=== PATIENT | female | born 1935 | race Two or more races ===

== ENCOUNTER → 2017-03-03 | Outpatient (CLI) | payer BC | END | disposition home or self-care (01) | LOC: MAMMO 08:49 | DX: Z12.31 Encounter for screening mammogram for malignant neoplasm of breast (principal) | CPT/HCPCS: 77067 ==

== ENCOUNTER → 2018-03-04 | Outpatient (CLI) | payer BC ==
[~2018-03-04] MED LIST: CITA20TA6 PO; FERR325T58 PO; LEVO75TA5 PO
--- NOTE | 2018-03-06 14:43 | RAD ---
DATE: 03/04/2018 EXAM: MAMMO ADAM SCREENING BILATERAL HISTORY: Routine screening COMPARISON: 03/03/2017 This study was interpreted with the benefit of Computerized Aided Detection (CAD). Breast Density: SCATTERED The breast parenchyma shows scattered fibroglandular densities. Breast parenchyma level B. FINDINGS: 2-D and 3-D tomosynthesis imaging was performed in CC and MLO projections. A small benign-appearing lymph node type density is again noted laterally in the left breast. It has been present on multiple previous studies. Its size has fluctuated slightly. It is currently of a similar size when compared to the 02/25/2014 exam. No new breast densities are seen. No suspicious microcalcifications are evident. IMPRESSION: There is no mammographic evidence of malignancy in either breast. BI-RADS CATEGORY: 2 BENIGN FINDING(S) RECOMMENDED FOLLOW-UP: 12M 12 MONTH FOLLOW-UP PQRS compliance statement: Patient information was entered into a reminder system with a target due date for the next mammogram. Mammography is a sensitive method for finding small breast cancers, but it does not detect them all and is not a substitute for careful clinical examination. A negative mammogram does not negate a clinically suspicious finding and should not result in delay in biopsying a clinically suspicious abnormality. "Our facility is accredited by the [employer] Mammography [employer]."
== END | disposition home or self-care (01) ==
LOC: MAMMO 08:51
PROVIDERS: ATTEND Family Medicine
DX: Z12.31 Encounter for screening mammogram for malignant neoplasm of breast (principal)
CPT/HCPCS: 77063; 77067

== ENCOUNTER 2018-09-03 10:49 | Emergency (ER) | payer BC ==
[~2018-09-03] VITALS: Ht 160 cm; Wt 53.5 kg
[2018-09-03 11:03] VITALS: BP 164/80
[2018-09-03] MEDS ORDERED: METH4TAB2 PO (11:41)
[2018-09-03] MEDS ORDERED: TRIA15CR TP (11:41)
--- NOTE | 2018-09-03 11:43 | PHYS DOC ---
Past Medical History Past Medical History: Anemia, Constipation, Hypothyroid Past Surgical History: Appendectomy, Hysterectomy, Tonsillectomy, Other Additional Past Surgical Histo: D&C,BILAT CATARACTS Alcohol Use: None Drug Use: None Adult General Chief Complaint Chief Complaint: SKIN RASH/ABSCESS [facility] HPI Patient is a 83 year old female who presents with red papules that are itchy x 5 weeks. Patient states they are getting worse. Patient states she has oak trees in her yard and is wondering if she is having oak mite bites. Rates her discomfort at a 9/10. Patient states she can not sleep at night due to the itching. Review of Systems Review of Systems Constitutional: Denies fever or chills [] Eyes: Denies change in visual acuity, redness, or eye pain [] HENT: Denies nasal congestion or sore throat [] Respiratory: Denies cough or shortness of breath [] Cardiovascular: No additional information not addressed in HPI [] GI: Denies abdominal pain, nausea, vomiting, bloody stools or diarrhea [] : Denies dysuria or hematuria [] Musculoskeletal: Denies back pain or joint pain [] Integument: rash or skin lesions [] Neurologic: Denies headache, focal weakness or sensory changes [] Endocrine: Denies polyuria or polydipsia [] All other systems were reviewed and found to be within normal limits, except as documented in this note. Allergies Allergies Allergies Coded Allergies Type Severity Reaction Last Updated Verified Penicillins Allergy Intermediate 04/05/16 Yes Physical Exam Physical Exam Constitutional: Well developed, well nourished, no acute distress, non-toxic apryl earance. [] HENT: Normocephalic, atraumatic, bilateral external ears normal, oropharynx moist, no oral exudates, nose normal. [] Eyes: PERRLA, EOMI, conjunctiva normal, no discharge. [] Neck: Normal range of motion, no tenderness, supple, no stridor. [] Cardiovascular:Heart rate regular rhythm, no murmur [] Lungs & Thorax: Bilateral breath sounds clear to auscultation [] Abdomen: Bowel sounds normal, soft, no tenderness, no masses, no pulsatile masses. [] Skin: Warm, dry, no erythema, small papule rash to bilateral legs, groins, under breasts. [] Back: No tenderness, no CVA tenderness. [] Extremities: No tenderness, no cyanosis, no clubbing, ROM intact, no edema. [] Neurologic: Alert and oriented X 3, normal motor function, normal sensory function, no focal deficits noted. [] Psychologic: Affect normal, judgement normal, mood normal. [] Current Patient Data Vital Signs Vital Signs Date Time Temp Pulse Resp B/P (MAP) Pulse Ox O2 Delivery O2 Flow Rate FiO2 09/03/18 11:03 97.6 83 20 164/80 (108) 99 Room Air 97.6 EKG EKG [] Radiology/Procedures Radiology/Procedures [] Course & Med Decision Making Course & Med Decision Making Patient is a 83 year old female who presents with red papules that are itchy x 5 weeks. Patient states they are getting worse. Patient states she has oak trees in her yard and is wondering if she is having oak mite bites. Rates her discomfort at a 9/10. Patient states she can not sleep at night due to the itching. Alert and oriented. Patient has eraser sized red papules to bilateral inner thighs, groins, left arm, under breast. These appear to be insect bites. No drainage or signs of infection. No papules in webbing of fingers or toes. Vital sign are wnl. Patient states they are very itchy and she can not sleep. Alert and Oriented. Ambulatory. Speaks in full clear sentences. Patient to call her doctor tomorrow. I will put the patient on a Medrol dose pack and triamcinolone cream. Patient has no liver, kidney, or heart history. Dragon Disclaimer Dragon Disclaimer This electronic medical record was generated, in whole or in part, using a voice recognition dictation system. Departure Departure Impression: Primary Impression: Rash Disposition: HOME, SELF-CARE Condition: STABLE Referrals: LEO JONES MD (PCP) Patient Instructions: Rash Additional Instructions: Call your doctor tomorrow to be seen for follow up. Use medications as prescribed. Scripts Methylprednisolone (MEDROL) 4 Mg Tab.ds.pk 1 PKG PO UD, #1 PKG Prov: MYRTLE LLANES ACCOUNTS RECEIVABLE MANAGER 09/03/18 Triamcinolone Acetonide (TRIAMCINOLONE ACETONIDE 0.5% CREAM) 15 Gm Cream..g. 1 APRYL TP BID for 7 Days, #30 GM Prov: MYRTLE LLANES APRN 09/03/18 MYRTLE LLANES APRN Sep 03, 2018 11:42
== END 2018-09-03 11:48 | disposition home or self-care (01) ==
LOC: ER 10:49
DX: R21 Rash and other nonspecific skin eruption (principal); L29.9 Pruritus, unspecified; E03.9 Hypothyroidism, unspecified; Z86.2 Personal history of diseases of the blood and blood-forming organs and certain disorders involving the immune mechanism; Z88.0 Allergy status to penicillin
CPT/HCPCS: 99284

== ENCOUNTER → 2019-03-06 | Outpatient (CLI) | payer BC ==
[~2019-03-06] MED LIST changes: +METH4TAB2 PO; +TRIA15CR TP
--- NOTE | 2019-03-07 17:36 | RAD ---
DATE: 03/06/2019 EXAM: MAMMO ADAM SCREENING BILATERAL HISTORY: Routine screening COMPARISON: 03/04/2018, 03/03/2017, 02/27/2016, 02/27/2015, 02/25/2014 This study was interpreted with the benefit of Computerized Aided Detection (CAD). Breast Density: HETERO The breast parenchyma is heterogenously dense, which could reduce sensitivity of mammography. Breast parenchyma level C. FINDINGS: Parenchymal distribution is stable. No mass or distortion in the interval. Small left upper outer breast mass is stable. IMPRESSION: Stable BI-RADS CATEGORY: 1 NEGATIVE RECOMMENDED FOLLOW-UP: 12M 12 MONTH FOLLOW-UP PQRS compliance statement: Patient information was entered into a reminder system with a target due date for the next mammogram. Mammography is a sensitive method for finding small breast cancers, but it does not detect them all and is not a substitute for careful clinical examination. A negative mammogram does not negate a clinically suspicious finding and should not result in delay in biopsying a clinically suspicious abnormality. "Our facility is accredited by the [employer] Mammography [employer]."
== END | disposition home or self-care (01) ==
LOC: MAMMO 14:26
PROVIDERS: ATTEND Family Medicine
DX: Z12.31 Encounter for screening mammogram for malignant neoplasm of breast (principal); N63.21 Unspecified lump in the left breast, upper outer quadrant
CPT/HCPCS: 77063; 77067

== ENCOUNTER → 2020-03-12 | Outpatient (CLI) | payer BC, MEDICARE ==
--- NOTE | 2020-03-13 09:21 | RAD ---
DATE: 03/12/2020 9:07 AM EXAM: DIGITAL SCREEN BILAT W/CAD HISTORY: Screening COMPARISON: 03/06/2019, 03/04/2018 and 03/03/2017. Bilateral full field craniocaudal and mediolateral oblique images were obtained using digital technique. This study was interpreted with the benefit of Computerized Aided Detection (CAD). FINDINGS: Breast Density: SCATTERED The breast parenchyma shows scattered fibroglandular densities. Breast parenchyma level B No suspicious masses, microcalcifications or architectural distortion is present to suggest malignancy in either breast. The visualized axillae are unremarkable. IMPRESSION: No mammographic evidence of malignancy. BI-RADS CATEGORY: 1 NEGATIVE RECOMMENDED FOLLOW-UP: 12M 12 MONTH FOLLOW-UP Annual screening mammography is recommended, unless clinically indicated sooner based on symptoms or change in physical exam. PQRS compliance statement: Patient information was entered into a reminder system with a target due date for the next mammogram. Mammography is a sensitive method for finding small breast cancers, but it does not detect them all and is not a substitute for careful clinical examination. A negative mammogram does not negate a clinically suspicious finding and should not result in delay in biopsying a clinically suspicious abnormality. "Our facility is accredited by the [employer] Mammography [employer]."
== END ==
LOC: MAMMO 10:03
PROVIDERS: ATTEND Family Medicine
DX: Z12.31 Encounter for screening mammogram for malignant neoplasm of breast (principal)
CPT/HCPCS: 77067

== ENCOUNTER → 2021-03-18 | Outpatient (CLI) | payer BC ==
--- NOTE | 2021-03-18 16:30 | RAD ---
Digital Mammogram Bilateral History: Routine screening Technique: 2-D digital CC and MLO views were obtained. CAD - computer aided detection was utilize d. Comparison: Mammograms from 03/12/2020 and 03/06/2019.. Findings: Breast Tissue Density B : There are scattered areas of fibroglandular density There are no suspicious masses, malignant appearing calcifications, or areas of architectural distort ion. Impression: No evidence of malignancy. Assessment: BI-RADS Category 1: Negative. Recommendation: Routine screening mammograms. The patient will receive a letter with the results in the mail. Patient information will be entered i nto the mammography reminder system with a target recall date for the next mammogram. A reminder abhinav er will be generated. Electronically signed by: Tania Mo MD (03/18/2021 4:27 PM) [id number]
== END ==
LOC: MAMMO 10:21
PROVIDERS: ATTEND Family Medicine
DX: Z12.31 Encounter for screening mammogram for malignant neoplasm of breast (principal)
CPT/HCPCS: 77067